=== PATIENT | female | born 1930 | race Caucasian/White ===

== ENCOUNTER 2017-09-03 15:08 | Emergency (ER) | payer MEDICARE, OTHER ==
[~2017-09-03] VITALS: Ht 170.2 cm; Wt 86.2 kg
[~2017-09-03 15:08] MED LIST: ACET-687 PO; ALLO300T PO; ASPI-667 PO; ATOR10TA PO; CHLO25TA PO; CITA20TA9 PO; DILT360C PO; DILT90TA PO; FLUT16SP; FLUT1DIS5 IH; ISOS30TA4 PO; LACT1TAB3 PO; LEVO750T25 PO; LOSA100T6 PO; LOSA1TAB22 PO; LOSA25TA5 PO; LOVA20TA2 PO; METO-236 PO; METR500T PO; NITR0.4T26 SL; OMEG500C PO; OMEP40CA6 PO; POTA20PA PO; PROM25TA10 PO; RIVA10TA PO; TIOT18CA IH; TORS20TA PO; TRAM50TA PO
--- NOTE | 2017-09-03 15:10 | NUR ---
arrival patient arrived via ems with altered mental status patient family reports having heart cath yesterday in [place] patient will answer yes or no questions but is extremely lethargic patient on high con mask at 15% patient transferred to bed and placed on monitor
--- NOTE | 2017-09-03 15:20 | PCM.EKG ---
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
[2017-09-03 15:26] VITALS: BP 128/57
--- NOTE | 2017-09-03 15:29 | ER.PDOC ---
General Chief Complaint: Requesting Medical Care Stated Complaint: ALOC Time seen by MD: 15:05 Source: patient Exam Limitations: no limitations History of Present Illness Initial Comments Pt with a history of hear cath yesterday, started today with decreased responsiveness and low O2 sats, however, she has been responding to commands Timing/Duration: 24 hours Severity: severe Activities at Onset: none Prior Episodes/Possible Cause: no prior episodes Allergies: Coded Allergies: FELIPE Inhibitors (Verified Allergy, Severe, FACIAL SWELLING, 08/09/16) clonidine (Unverified Allergy, Unknown, 08/09/16) lisinopril (Verified Allergy, Unknown, 08/09/16) ramipril (Unverified Allergy, Unknown, 08/09/16) Home Meds Active Scripts Atorvastatin 10MG (LIPITOR 10MG) 10 Mg Tablet, 10 MG PO HS for 30 Days, #30 TAB Prov:AMARI THORPE MD 06/27/17 Losartan Potassium (LOSARTAN POTASSIUM) 25 Mg Tablet, 1 TAB PO DAILY, #30 TAB 1 Refill Prov:SHIVANI TOLLIVER MD 11/02/16 Reported Medications Lactobacillus Combo No.6 (PROBIOTIC COMPLEX) 1 Each Tablet, 1 EACH PO DAILY, TABLET 12/16/16 Promethazine Hcl (PROMETHAZINE HCL) 25 Mg Tablet, 25 MG PO TID PRN for NAUSEA/ VOMITING, TABLET 12/16/16 Allopurinol (ALLOPURINOL) 300 Mg Tablet, 1 TAB PO DAILY, #30 TAB 5 Refills 12/16/16 Chlorthalidone (CHLORTHALIDONE) 25 Mg Tablet, 1 TAB PO DAILY, #30 TAB 5 Refills 12/16/16 Fluticasone/Salmeterol (ADVAIR 500-50 DISKUS) 1 Each Disk.w.dev, 1 PUFF IH BID, INHALER 08/09/16 Tramadol Hcl (TRAMADOL HCL) 50 Mg Tablet, 1 TAB PO Q4 PRN for PAIN, TAB 08/09/16 Isosorbide Mononitrate (ISOSORBIDE MONONITRATE ER) 30 Mg Tab.er.24h, 1 TAB PO DAILY, TAB 08/09/16 Metoprolol Succinate (METOPROLOL SUCCINATE) 25 Mg Tab.er.24h, 1 TAB PO DAILY, TAB 08/09/16 Diltiazem Hcl (CARDIZEM CD) 360 Mg Cap.er.24h, 1 CAP PO DAILY, CAP 08/09/16 [place]-3 Fatty Acids (FISH OIL) 500 Mg Capsule.dr, 500 MG PO DAILY 08/09/16 Omeprazole (OMEPRAZOLE) 40 Mg Capsule.dr, 1 CAP PO HS, CAP 01/25/14 Aspirin (ASPIRIN) 81 Mg Tab.chew, 1 TAB PO DAILY, TAB 01/25/14 Past Medical History Surgical History: cardiac cath, cholecystectomy, colon, hip, stent Social History Drug Use: none Review of Systems Constitutional: malaise, weakness EENTM: no symptoms reported Respiratory: no symptoms reported Cardiovascular: see HPI Gastrointestinal: vomiting Genitourinary: no symptoms reported Musculoskeletal: no symptoms reported Skin: no symptoms reported Psychiatric/Neurological: see HPI, weakness, other (altered mental status) Endocrine: no symptoms reported Hematologic/Lymphatic: no symptoms reported Physical Exam General Appearance: Lethargic, Moderate Distress HEENT: PERRL/EOMI, Normal ENT Inspection, TMs Normal, Pharynx Normal Neck: Non-Tender, Full Range of Motion, Supple, Normal Inspection Respiratory: rales (bibasal), rhonchi Cardiovascular: Normal Peripheral Pulses, Regular Rate, Rhythm, No Edema, No Gallop, No JVD, No Murmur Gastrointestinal: Normal Bowel Sounds, No Organomegaly, No Pulsatile Mass, Non Tender, Soft Extremities: Normal Range of Motion, Non-Tender, Normal Inspection, No Pedal Edema, No Calf Tenderness, Normal Capillary Refill Neurologic/Psychiatric: [place] II-XII NML as Tested, No Motor/Sensory Deficits, Alert, Normal Mood/Affect Skin: Normal Color, Warm/Dry Lymphatic: No Adenopathy Results/Orders Results/Orders Laboratory Tests Test 09/03/17 15:30 09/03/17 15:54 White Blood Count 8.2 10^3/uL (4.5-11.0) Red Blood Count 4.32 10^6/uL (4.00-5.20) Hemoglobin 10.9 g/dL (12.0-15.0) Hematocrit 36.5 % (36.0-46.0) Mean Corpuscular Volume 84.5 fL (78-100) Mean Corpuscular Hemoglobin 25.2 pg (26-34) Mean Corpuscular Hemoglobin Concent 29.9 g/dL (33-37) Red Cell Distribution Width 16.4 % (11.5-14.5) Platelet Count 196 10^3/uL (150-400) Mean Platelet Volume 10.3 fL (7.8-11.0) Neutrophils (%) (Auto) 85.1 % (41.0-85.0) Lymphocytes (%) (Auto) 12.1 % (24.0-44.0) Monocytes (%) (Auto) 2.4 % (5.0-12.0) Neutrophils # (Auto) 7.0 10^3/uL (1.8-7.7) Lymphocytes # (Auto) 1.0 10^3/uL (1.0-4.8) Monocytes # (Auto) 0.2 10^3/uL (0.3-0.8) Absolute Immature Granulocyte (auto 0.02 10^3 u/L (0-2) Eosinophils % 0.0 % (0.0-5.0) Basophils % 0.2 % (0.0-0.2) Basophils # 0.0 10^3/uL (0.0-0.1) Eosinophil Count 0.0 10^3/uL (0.0-0.2) Percent Immature Gran (Cell Imm) 0.20 % (0.00-0.50) Prothrombin Time 9.3 SEC (9.8-11.9) Prothrombin Time INR (Non-Therap) 0.9 Activated Partial Thromboplast Time 21.4 SEC (24.67-30.72) D-Dimer 2.43 mg/L (0.19-0.49) Sodium Level 143 mmol/L (132-145) Potassium Level 3.9 mmol/L (3.6-5.2) Chloride Level 106.0 mmol/L (96-109) Carbon Dioxide Level mmol/L (20.0-32) Anion Gap Blood Urea Nitrogen 28 mg/dL (7-18) Creatinine 0.27 mg/dL (0.59-1.40) Estimated GFR () 288.9 (>/=60) BUN/Creatinine Ratio 103.0 Glucose Level 145 mg/dL (70-110) Calcium Level mg/dL (8.4-10.5) Total Bilirubin mg/dL (0.2-1.0) Aspartate Amino Transf (AST/SGOT) U/L (0-35) Alanine Aminotransferase (ALT/SGPT) U/L (12-78) Alkaline Phosphatase U/L (50-136) Total Creatine Kinase U/L (26-192) Creatine Kinase MB 140.4 ng/mL (0.5-3.6) Troponin I 0.11 ng/mL (0.00-0.05) Pro-B-Type Natriuretic Peptide 2610 pg/mL (0-450) Total Protein 7.2 g/dL (6.4-8.2) Albumin g/dL (3.4-5.0) Globulin Administered Medications Medications (Trade) Dose Ordered Sig/Rojas Route PRN Reason Start Time Stop Time Status Last Admin Dose Admin Sodium Chloride 1,000 ml @ 250 mls/hr Q4H ONCE IV 09/03/17 16:00 09/03/17 19:59 09/03/17 15:30 Ondansetron HCl (Zofran) 4 mg STAT STAT IV 09/03/17 16:37 09/03/17 16:38 DC 09/03/17 16:52 Departure Time of Disposition: 16:57 Disposition: 02 XFER SHT-TRM HOSP Impression: Primary Impression: 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
--- NOTE | 2017-09-03 15:34 | NUR ---
iv 22 gauge iv to right hand
[2017-09-03] MEDS ORDERED: NS 1000ML 1,000 ML ONE (15:46)
[2017-09-03 15:47] LABS: BASOPHIL % 0.2 % (0.0-0.2); HEMOGLOBIN 10.9 g/dL (12.0-15.0); LYMPHOCYTES % 12.1 % (24.0-44.0); MEAN CELL HGB 25.2 pg (26-34); MEAN CELL HGB CONCENTRATION 29.9 g/dL (33-37); MEAN CORP VOLUME 84.5 fL (78-100); MEAN PLATELET VOLUME 10.3 fL (7.8-11.0); MONOCYTES # 0.2 10^3/uL (0.3-0.8); MONOCYTES % 2.4 % (5.0-12.0); NEUTROPHILS % 85.1 % (41.0-85.0); RED CELL DISTRIBUTION WIDTH 16.4 % (11.5-14.5); WHITE BLOOD CELL 8.2 10^3/uL (4.5-11.0)
[2017-09-03] MEDS ORDERED: NS 1000ML 1,000 ML IV ONE (16:00)
--- NOTE | 2017-09-03 16:10 | NUR ---
ct patient to and from ct
[2017-09-03] MEDS ORDERED: LASIX ONE ×2 (16:20→16:21)
[2017-09-03] MEDS ORDERED: LASIX IV STA (16:21)
[2017-09-03 16:26] VITALS: BP 135/81
[2017-09-03 16:29] LABS: GLUCOSE 145 mg/dL (70-110)
--- NOTE | 2017-09-03 16:31 | DIREP ---
PROCEDURE:CT HEAD WITHOUT CONTRAST TECHNIQUE:Axial cuts were obtained through the head, without intravenous contrast material. The images were viewed at brain and bone settings. COMPARISON:[facility], CT, CT HEAD BRAIN W/O CONTRAST, 06/26/2017, 10:17 AM. [facility], MR, MRI BRAIN W/O, 06/26/2017, 01:25 PM. INDICATIONS:SOB FINDINGS: VENTRICLES:Normal. CEREBRUM:Mild cortical atrophy and periventricular leukoaraiosis. Prominent bilateral basal ganglia perivascular spaces. No intracranial hemorrhage, large territory infarct or space-occupying mass. CEREBELLUM:Development of large area of decreased attenuation in the right cerebellar hemisphere with sulcal effacement. Old small left cerebellar hemispheric infarct. BRAINSTEM:Normal. SKULL:Normal. SINUSES:Normal. OTHER:None CONCLUSION:Large subacute nonhemorrhagic right cerebellar hemispheric infarct. Dictated by: Michelle Michaels MD on 09/03/2017 at 04:24 PM
[2017-09-03] MEDS ORDERED: ZOFRAN IV STA (16:37)
[2017-09-03] MEDS ORDERED: ZOFRAN ONE (16:37)
--- NOTE | 2017-09-03 16:54 | NUR ---
DR MAURILIO THORPE NOTIFIED OF TRANSFER
[2017-09-03 17:09] VITALS: BP 129/79
--- NOTE | 2017-09-03 17:12 | NUR ---
LIFESTAR LIFESTAR IN THE ED GETTING REPORT FROM ISELA CABA
--- NOTE | 2017-09-03 17:15 | NUR ---
Juan Carlos Called daughter to inform her that treyar was here to take the patient to [facility] and that she could met them in the ER when she arrives at [facility]
--- NOTE | 2017-09-04 09:45 | DIREP ---
PROCEDURE: CHEST 1 VIEW COMPARISON: [facility], CR, XRAY CHEST SINGLE VW, 06/26/2017, 10 :39 AM. INDICATIONS: AMS FINDINGS: LUNGS/PLEURA: Chronic interstitial changes. Increased interstitial thickening. Small pleural effusions may be present. No focal infiltrate. CARDIAC: Mild cardiomegaly and increased central pulmonary vascularity. Calcified tortuous aorta. MEDIASTINUM: Normal. BONES: Normal. OTHER: No additional findings. CONCLUSION: Findings suggestive of mild CHF or volume overload. Dictated by: Michelle Michaels MD on 09/03/2017 at 04:11 PM [facility]
== END 2017-09-03 17:18 | disposition short-term general hospital (02) ==
LOC: EDBD 15:08 → ER 15:08
DX: I63.9 Cerebral infarction, unspecified (principal); I25.10 Atherosclerotic heart disease of native coronary artery without angina pectoris; I50.9 Heart failure, unspecified; R41.82 Altered mental status, unspecified; R11.10 Vomiting, unspecified; R53.1 Weakness; Z79.82 Long term (current) use of aspirin; Z90.49 Acquired absence of other specified parts of digestive tract; Z79.899 Other long term (current) drug therapy; Z88.8 Allergy status to other drugs, medicaments and biological substances
CPT/HCPCS: 36415; 70450; 71045; 80053; 82550; 82553; 83880; 84484; 85025; 85379; 85610; 85730; 93005; 96361; 96374; 96375; 99285; J1940; J2405; J7030

== ENCOUNTER → 2017-10-02 | Outpatient (CLI) | payer MEDICARE, OTHER ==
[2017-10-02 11:39] LABS: HEMOGLOBIN 7.7 g/dL (12.0-15.0); LYMPHOCYTES # 0.7 10^3/uL (1.0-4.8); LYMPHOCYTES % 22.9 % (24.0-44.0); MEAN CELL HGB 28.3 pg (26-34); MEAN CELL HGB CONCENTRATION 30.2 g/dL (33-37); MEAN CORP VOLUME 93.8 fL (78-100); MEAN PLATELET VOLUME 10.2 fL (7.8-11.0); MONOCYTES # 0.3 10^3/uL (0.3-0.8); MONOCYTES % 9.2 % (5.0-12.0); NEUTROPHILS % 66.6 % (41.0-85.0); RED CELL DISTRIBUTION WIDTH 18.9 % (11.5-14.5); WHITE BLOOD CELL 3.1 10^3/uL (4.5-11.0)
[2017-10-02 12:08] LABS: CALCIUM 7.7 mg/dL (8.4-10.5)
== END | disposition home or self-care (01) ==
LOC: NPLAB 11:06
PROVIDERS: ATTEND Family Medicine
DX: I13.0 Hypertensive heart and chronic kidney disease with heart failure and stage 1 through stage 4 chronic kidney disease, or unspecified chronic kidney disease (principal); N18.9 Chronic kidney disease, unspecified; I50.23 Acute on chronic systolic (congestive) heart failure; D62 Acute posthemorrhagic anemia; K92.2 Gastrointestinal hemorrhage, unspecified
CPT/HCPCS: 36415; 80053; 85025

== ENCOUNTER 2017-10-08 14:25 | Emergency (ER) | payer MEDICARE, OTHER ==
[~2017-10-08] VITALS: Ht 162.6 cm; Wt 74.8 kg
--- NOTE | 2017-10-08 14:30 | NUR ---
MONITORS EKG OBTAINED, PATIENT CONNECTED TO ALL MONITORS, NO S/S OF DISTRESS.
--- NOTE | 2017-10-08 14:30 | NUR ---
ARRIVAL PATIENT TO ROOM 7 VIA WHEELCHAIR. NO REPORT CALLED BY LONG TERM. PATIENT SENT TO ER BECAUSE OF LOW POTASSIUM LABS, REPORTED BY THE CNAS WITH PATIENT. MORALES BAG LEAKING AND CHANGED OUT BY THIS NURSE. PATIENT DENIES ANY PAIN AND IS SUFFERING FROM A RECENT CVA.
--- NOTE | 2017-10-08 15:06 | PCM.EKG ---
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 : 1930 Requested By: COOPER NI Order Number: [id number] Reading MD: Cooper Ni Measurements Intervals [place] Rate: 112 P: 141 MD: 236 QRS: -26 QRSD: 80 T: 95 QT: 348 QTc: 475 Interpretive Statements Undetermined rhythm Septal infarct, age undetermined T wave abnormality, consider anterior ischemia Abnormal ECG Compared to ECG 09/03/2017 15:16:42 T-wave abnormality now present Possible ischemia now present Sinus bradycardia no longer present Myocardial infarct finding still present Electronically Signed On 10-08-2017 19:10:30 CDT by Cooper Ni Please click the below link to view image of tracing.
--- NOTE | 2017-10-08 15:16 | ER.PDOC ---
General Chief Complaint: General Complaint Stated Complaint: ALTERED MENTAL STATUS Time seen by MD: 14:30 Source: patient, family, snf records Exam Limitations: language barrier (Pt has aphagia and is unable to speak) History of Present Illness Initial Comments Pt presents today with daughter and snf nurses. Labs were drawn this morning, 10/08/17, which showed a Potassium level of 2.7, after which they came to the ER. Pt denies palpitations, CP, or dizziness more than normal. Pt daughter states she has been having suprapubic pain X 1 week. Pt denies dysuria , hematuria, or frequency of urination. snf personel states she has aphasia and is unable to take medications po and has not taken meds the past couple days. Occurred: this morning Severity: mild Decreased Ability to Stand: weak Usually: walks w/ assistance Worsened By: nothing Prior symptoms/Treatment: No Similar symptoms previous, No Recenly Seen, No Treated by Doctor, No Recently Hospitalized Allergies: Coded Allergies: FELIPE Inhibitors (Verified Allergy, Severe, FACIAL SWELLING, 08/09/16) clonidine (Unverified Allergy, Unknown, 08/09/16) lisinopril (Verified Allergy, Unknown, 08/09/16) ramipril (Unverified Allergy, Unknown, 08/09/16) Home Meds Active Scripts Atorvastatin 10MG (LIPITOR 10MG) 10 Mg Tablet, 10 MG PO HS for 30 Days, #30 TAB Prov:AMARI THORPE MD 06/27/17 Losartan Potassium (LOSARTAN POTASSIUM) 25 Mg Tablet, 1 TAB PO DAILY, #30 TAB 1 Refill Prov:SHIVANI TOLLIVER MD 11/02/16 Reported Medications Lactobacillus Combo No.6 (PROBIOTIC COMPLEX) 1 Each Tablet, 1 EACH PO DAILY, TABLET 12/16/16 Promethazine Hcl (PROMETHAZINE HCL) 25 Mg Tablet, 25 MG PO TID PRN for NAUSEA/ VOMITING, TABLET 12/16/16 Allopurinol (ALLOPURINOL) 300 Mg Tablet, 1 TAB PO DAILY, #30 TAB 5 Refills 12/16/16 Chlorthalidone (CHLORTHALIDONE) 25 Mg Tablet, 1 TAB PO DAILY, #30 TAB 5 Refills 12/16/16 Fluticasone/Salmeterol (ADVAIR 500-50 DISKUS) 1 Each Disk.w.dev, 1 PUFF IH BID, INHALER 08/09/16 Tramadol Hcl (TRAMADOL HCL) 50 Mg Tablet, 1 TAB PO Q4 PRN for PAIN, TAB 08/09/16 Isosorbide Mononitrate (ISOSORBIDE MONONITRATE ER) 30 Mg Tab.er.24h, 1 TAB PO DAILY, TAB 08/09/16 Metoprolol Succinate (METOPROLOL SUCCINATE) 25 Mg Tab.er.24h, 1 TAB PO DAILY, TAB 08/09/16 Diltiazem Hcl (CARDIZEM CD) 360 Mg Cap.er.24h, 1 CAP PO DAILY, CAP 08/09/16 [place]-3 Fatty Acids (FISH OIL) 500 Mg Capsule.dr, 500 MG PO DAILY 08/09/16 Omeprazole (OMEPRAZOLE) 40 Mg Capsule.dr, 1 CAP PO HS, CAP 01/25/14 Aspirin (ASPIRIN) 81 Mg Tab.chew, 1 TAB PO DAILY, TAB 01/25/14 Past Medical History Medical History: CVA/TIA/stroke, coronary artery disease, cardiac problems, congestive heart failure, COPD, heart attack, hypertension, renal disease Surgical History: no surgical history LMP (females 10-50): postmenopause Social History Smoking: non-smoker Alcohol Use: none Drug Use: none Review of Systems Constitutional: denies no symptoms reported, denies see HPI, denies chills, denies diaphoresis, denies fever, denies malaise, denies weakness, denies other Ears: denies no symptoms reported, denies see HPI, denies dizziness, denies pain, denies tinnitus, denies bloody discharge, denies clear discharge, denies purulent discharge, denies serosanguinous discharge, denies previous injury, denies other Respiratory: denies no symptoms reported, denies see HPI, denies cough, denies orthopnea, denies shortness of breath, denies stridor, denies wheezing, denies other Cardiovascular: denies no symptoms reported, denies see HPI, denies chest pain , denies edema, denies irregular heart rate, denies lightheadedness, denies palpitations, denies syncope, denies other Gastrointestinal: denies no symptoms reported; see HPI, abdominal pain; denies constipation, denies diarrhea, denies nausea, denies vomiting, denies other Genitourinary: denies no symptoms reported, denies see HPI, denies discharge, denies dysuria, denies frequency, denies hematuria, denies pain, denies other Musculoskeletal: denies no symptoms reported, denies see HPI, denies back pain , denies gout, denies joint pain, denies joint swelling, denies muscle pain, denies muscle stiffness, denies neck pain, denies other Physical Exam General Appearance: alert, no distress Respiratory: no resp distress, breath sounds nml CVS: reg rate & rhythm, heart sounds.nml Abdomen: no organomegaly, no distention, tenderness (Tender to palpation over suprapubic area) Extremities: non-tender, nml ROM, no pedal edema Neuro/Psych: nml orientation (Pt unable to speak due to aphasia. Was able to nod yes or no to all questions.), nml mood/affect Sensorimotor: weakness Results/Orders Results/Orders Laboratory Tests Test 10/08/17 15:17 Urine Collection Type UNKNOWN Urine Color YELLOW (YELLOW) Urine Appearance SLIGHTLY CLOUDY (CLEAR) Urine Bilirubin 1 MG/DL (NEGATIVE) Urine Ketones 15 mg/dL (NEGATIVE) Urine Specific [place] 1.020 (1.005-1.035) Urine pH 6 (5.0-6.0) Urine Protein 100 mg/dL (NEGATIVE) Urine Urobilinogen NORMAL (NEGATIVE) Urine Nitrate POSITIVE (NEGATIVE) Urine Leukocyte Esterase 500/uL 2+ (NEGATIVE) Urine Blood 50 2+ (NEGATIVE) Urine RBC 2-5 RBC/HPF (NONE SEEN) Urine WBC TNTC WBC/HPF (0-2) Urine Squamous Epithelial Cells RARE #/HPF (FEW) Urine Bacteria MANY (NONE SEEN) Urine Glucose NORMAL (NEGATIVE) Departure Time of Disposition: 15:56 Disposition: 01 HOME, SELF-CARE Impression: Primary Impression: Hypokalemia Additional Impression: UTI (urinary tract infection) Condition: Stable Referrals: VIBHA THOMPSON MD (PCP) PRIMARY CARE PROVIDER Duration or Time Spent with Pa: 15 Problem Qualifiers LEILANI WRIGHT MD Oct 08, 2017 15:16
[2017-10-08 15:24] LABS: BILIRUBIN,URINE 1 MG/DL (NEGATIVE); UROBILINOGEN,URINE NORMAL (NEGATIVE)
[2017-10-08] MEDS ORDERED: POTASSIUM CHLORIDE PO STA (15:27)
[2017-10-08 15:37] VITALS: BP 148/86
[2017-10-08 15:43] LABS: APPEARANCE,URINE SLIGHTLY CLOUDY (CLEAR); UA COLOR YELLOW (YELLOW)
[2017-10-08] MEDS ORDERED: POTASSIUM CHLORIDE ONE (15:43)
[2017-10-08] MEDS ORDERED: NS 100ML 100 ML IV ONE (15:52)
[2017-10-08] MEDS ORDERED: ROCEPHIN IM IM STA (15:52)
[2017-10-08] MEDS ORDERED: ROCEPHIN ONE ×2 (15:52→16:08)
--- NOTE | 2017-10-08 16:05 | NUR ---
IV IV DC BECAUSE OF INFULTRATION.
[2017-10-08] MEDS ORDERED: LIDOCAINE 1% VIAL ONE (16:08)
--- NOTE | 2017-10-08 16:15 | NUR ---
[facility] ISELA KERR, ON PHONE WITH [facility] FOR TRANSPORT BACK TO [facility]
--- NOTE | 2017-10-08 16:30 | NUR ---
[facility] RN FROM [facility] CALLED TO EXPRESS CONCERNS FOR PATIENT REFUSING MEDICATION AND POTASSIUM SUPPLEMENTS IN [facility], PATIENT TOOK ORAL SUSPENSION IN ER WITH THIS NURSE WITHOUT EVENT, CONCERNS EXPRESSED TO EDP, EDP DISCHARGING PATIENT BACK TO [facility] WITH PO SUSPENSION POTASSIUM.
[2017-10-08 16:50] VITALS: BP 172/89
[2017-10-08 17:02] VITALS: BP 172/89
== END 2017-10-08 17:00 | disposition home or self-care (01) ==
LOC: ER 14:25
DX: E87.6 Hypokalemia (principal); N39.0 Urinary tract infection, site not specified; I11.0 Hypertensive heart disease with heart failure; I25.10 Atherosclerotic heart disease of native coronary artery without angina pectoris; I25.2 Old myocardial infarction; I50.9 Heart failure, unspecified; J44.9 Chronic obstructive pulmonary disease, unspecified; Z79.82 Long term (current) use of aspirin; Z86.73 Personal history of transient ischemic attack (TIA), and cerebral infarction without residual deficits
CPT/HCPCS: 81000; 87086; 93005; 96372; 99285; J0696 ×2; J2001; J7050